=== PATIENT | female | born 1940 | race Caucasian/White ===

== ENCOUNTER 2016-12-11 20:27 | Inpatient (IN) | payer OTHER ==
[~2016-12-11] VITALS: Ht 167.6 cm; Wt 105.4 kg
[2016-12-11 21:01] VITALS: BP 197/111
[2016-12-11 21:30] VITALS: BP 190/118
[2016-12-11 22:23] LABS: CHLORIDE 109 mEq/L (99-109); MCH 25.4 PG (29.0-34.0); MCHC 30.9 G/DL (30.0-36.0); MCV 82.3 FL (83-99); POTASSIUM 4.1 mEq/L (3.7-5.4); RBC DIS.WIDTH-CV 16.4 % (11.8-14.6); RED BLOOD COUNT 4.01 M/uL (3.80-5.20); SODIUM 140 mEq/L (136-147); WHITE BLOOD COUNT 8.1 K/uL (4.1-10.2)
[2016-12-11 22:25] LABS: GLUCOSE 156 mg/dL (70-99)
[2016-12-11 22:26] LABS: ANION GAP 9 MEQ/L (2-14); MEAN PLAT.VOLUME 9.7 uM^3 (9.5-12.4); PLATELET COUNT 446 K/uL (156-360)
[2016-12-11 22:27] LABS: TOTAL BILIRUBIN 0.2 mg/dL (0.0-1.0)
[2016-12-11 22:28] LABS: ALKALINE PHOSPHATASE 84 IU/L (3-129)
[2016-12-11 22:29] LABS: GFR ESTIMATE (CALCULATED) 33 mL/min/
[2016-12-11 22:30] LABS: UREA NITROGEN (BUN) 25 mg/dL (9-23)
[2016-12-11 22:32] LABS: LIPASE 71 U/L (1.0-51.0)
[2016-12-11 23:27] LABS: ADD MIUA? YES; BILIRUBIN NEGATIVE; BLOOD NEGATIVE; COLOR YELLOW ((YELLOW)); GLUCOSE (STRIP) NEGATIVE; KETONES NEGATIVE; LEUKOCYTES NEGATIVE; NITRITE NEGATIVE; PROTEIN (STRIP) >=500; SPECIFIC GRAVITY 1.013 (1.000-1.030); UROBILINOGEN 0.2 MG/DL (0.2-1.0)
[2016-12-11 23:48] LABS: BACTERIA 2+ /HPF; EPITHELIAL CELLS RARE /HPF; MUCUS NONE SEEN /LPF; RED BLOOD CELLS 0-5 /HPF (0-5); WHITE BLOOD CELLS 0-5 /HPF (0-5)
[2016-12-11 23:52] LABS: UCUL ADDED? YES
[2016-12-12 02:04] LABS: INFLUENZA A VIRAL ANTIGEN NEGATIVE; INFLUENZA B VIRAL ANTIGEN NEGATIVE
[2016-12-12] MEDS ORDERED: GABAPENTIN300 MG PO (03:22)
[2016-12-12] MEDS ORDERED: ASPIRIN325 MG PO (03:22)
[2016-12-12] MEDS ORDERED: LEVO-T125 MCG PO (03:23)
[2016-12-12] MEDS ORDERED: PRAVASTATIN SOD80 MG PO (03:23)
[2016-12-12] MEDS ORDERED: METOPROLOL TART50 MG PO (03:24)
[2016-12-12] MEDS ORDERED: B-121000 MC2 PO (03:24)
[2016-12-12] MEDS ORDERED: MULTIVITAMIN1 EAC2 PO (03:25)
[2016-12-12] MEDS ORDERED: LISINOPRIL20 MG PO (03:25)
[2016-12-12] MEDS ORDERED: PANTOPRAZOLE SO20 MG PO (03:26)
[2016-12-12] MEDS ORDERED: HUMALOG MI100 UNIT/1 SC (03:26)
[2016-12-12] MEDS ORDERED: MAGNESIUM30 MG PO (03:27)
[2016-12-12 06:47] VITALS: BP 136/97
[2016-12-12 07:58] VITALS: BP 181/93
[2016-12-12 08:04] LABS: POINT-OF-CARE METER ID UU13113700
[2016-12-12] MEDS ORDERED: PROTONIX40 MG PO (08:28)
[2016-12-12] MEDS ORDERED: VITAMIN B122500 MCG PO (08:29)
[2016-12-12 11:02] VITALS: BP 126/81
[2016-12-12 15:42] LABS: HEMATOCRIT 31.6 % (36.0-46.0); MCH 25.2 PG (29.0-34.0); MCHC 30.7 G/DL (30.0-36.0); MCV 82.1 FL (83-99); MEAN PLAT.VOLUME 9.3 uM^3 (9.5-12.4); PLATELET COUNT 410 K/uL (156-360); RBC DIS.WIDTH-CV 16.8 % (11.8-14.6); RBC DIS.WIDTH-SD 49.9 % (39-53); RED BLOOD COUNT 3.85 M/uL (3.80-5.20); WHITE BLOOD COUNT 8.1 K/uL (4.1-10.2)
[2016-12-12 15:59] VITALS: BP 139/75
[2016-12-12 16:06] LABS: ANION GAP 8 MEQ/L (2-14); CHLORIDE 106 MEQ/L (99-109); GFR ESTIMATE (CALCULATED) 36 mL/min/; POTASSIUM 4.2 MEQ/L (3.7-5.4); SAMPLE HEMOLYSIS CHECK 0; SAMPLE ICTERIC CHECK 0; SAMPLE LIPEMIA CHECK 0; SODIUM 136 MEQ/L (136-147); UREA NITROGEN (BUN) 25 mg/dL (9-23)
[2016-12-12 16:07] LABS: GLUCOSE 329 mg/dL (70-99)
[2016-12-12 20:00] VITALS: BP 130/78
[2016-12-13] VITALS: BP 154/89
[2016-12-13 04:00] VITALS: BP 128/66
[2016-12-13 07:46] VITALS: BP 126/82
[2016-12-13 07:48] LABS: POINT-OF-CARE METER ID UU14174225
[2016-12-13 11:32] VITALS: BP 147/72
[2016-12-13 15:05] VITALS: BP 153/79
[2016-12-13 17:14] LABS: POINT-OF-CARE METER ID UU14188625
[2016-12-13 19:29] VITALS: BP 174/81
[2016-12-13 21:28] LABS: POINT-OF-CARE METER ID UU14188625
[2016-12-14 00:48] VITALS: BP 156/83
[2016-12-14 04:24] VITALS: BP 138/84
[2016-12-14 06:27] LABS: HEMATOCRIT 29.8 % (36.0-46.0); MCH 24.8 PG (29.0-34.0); MCHC 30.5 G/DL (30.0-36.0); MCV 81.2 FL (83-99); MEAN PLAT.VOLUME 9.7 uM^3 (9.5-12.4); PLATELET COUNT 441 K/uL (156-360); RBC DIS.WIDTH-CV 16.7 % (11.8-14.6); RBC DIS.WIDTH-SD 49.6 % (39-53); RED BLOOD COUNT 3.67 M/uL (3.80-5.20); WHITE BLOOD COUNT 7.1 K/uL (4.1-10.2)
[2016-12-14 06:49] LABS: ANION GAP 9 MEQ/L (2-14); CHLORIDE 103 MEQ/L (99-109); GFR ESTIMATE (CALCULATED) 33 mL/min/; GLUCOSE 185 mg/dL (70-99); SAMPLE HEMOLYSIS CHECK 0; SAMPLE ICTERIC CHECK 0; SAMPLE LIPEMIA CHECK 0; SODIUM 134 MEQ/L (136-147); UREA NITROGEN (BUN) 26 mg/dL (9-23)
[2016-12-14 07:50] VITALS: BP 130/70
[2016-12-14 11:08] VITALS: BP 140/84
[2016-12-14 16:00] VITALS: BP 158/83
[2016-12-14 19:38] VITALS: BP 187/79
[2016-12-15] VITALS (8 sets, daily range): BP systolic 136–165; BP diastolic 70–94
[2016-12-15 06:46] LABS: HEMATOCRIT 32.1 % (36.0-46.0); MCH 24.7 PG (29.0-34.0); MCHC 30.5 G/DL (30.0-36.0); MCV 81.1 FL (83-99); MEAN PLAT.VOLUME 9.5 uM^3 (9.5-12.4); PLATELET COUNT 432 K/uL (156-360); RBC DIS.WIDTH-CV 16.5 % (11.8-14.6); RBC DIS.WIDTH-SD 48.9 % (39-53); RED BLOOD COUNT 3.96 M/uL (3.80-5.20); WHITE BLOOD COUNT 5.9 K/uL (4.1-10.2)
[2016-12-15 07:06] LABS: ANION GAP 9 MEQ/L (2-14); CHLORIDE 101 MEQ/L (99-109); GFR ESTIMATE (CALCULATED) 39 mL/min/; GLUCOSE 211 mg/dL (70-99); POTASSIUM 4.2 MEQ/L (3.7-5.4); SAMPLE HEMOLYSIS CHECK 0; SAMPLE ICTERIC CHECK 0; SAMPLE LIPEMIA CHECK 0; SODIUM 134 MEQ/L (136-147); UREA NITROGEN (BUN) 24 mg/dL (9-23)
[2016-12-15 21:03] LABS: POINT-OF-CARE METER ID UU14174225
[2016-12-16 03:46] VITALS: BP 148/60
[2016-12-16 07:30] VITALS: BP 138/76
[2016-12-16 07:58] LABS: POINT-OF-CARE METER ID UU14174225
[2016-12-16 11:09] VITALS: BP 138/64
[2016-12-16 15:15] VITALS: BP 134/69
[2016-12-16 19:58] VITALS: BP 170/100
[2016-12-16 21:53] LABS: POINT-OF-CARE METER ID UU14174225
[2016-12-17] VITALS (8 sets, daily range): BP systolic 108–150; BP diastolic 60–88
[2016-12-17 07:22] LABS: POINT-OF-CARE METER ID UU14174225
[2016-12-17 11:46] LABS: POINT-OF-CARE METER ID UU14174225
[2016-12-17 16:32] LABS: POINT-OF-CARE METER ID UU14174225
[2016-12-17 21:02] LABS: POINT-OF-CARE METER ID UU14174225
[2016-12-18 06:45] LABS: HEMATOCRIT 30.8 % (36.0-46.0); MCH 26.4 PG (29.0-34.0); MCHC 32.1 G/DL (30.0-36.0); MCV 82.1 FL (83-99); MEAN PLAT.VOLUME 9.7 uM^3 (9.5-12.4); PLATELET COUNT 452 K/uL (156-360); RBC DIS.WIDTH-CV 16.6 % (11.8-14.6); RBC DIS.WIDTH-SD 50.1 % (39-53); RED BLOOD COUNT 3.75 M/uL (3.80-5.20); WHITE BLOOD COUNT 7.3 K/uL (4.1-10.2)
[2016-12-18 08:08] VITALS: BP 163/72
[2016-12-18 08:33] LABS: ANION GAP 8 MEQ/L (2-14); CHLORIDE 98 MEQ/L (99-109); GFR ESTIMATE (CALCULATED) 39 mL/min/; GLUCOSE 156 mg/dL (70-99); POTASSIUM 4.8 MEQ/L (3.7-5.4); SAMPLE HEMOLYSIS CHECK 0; SAMPLE ICTERIC CHECK 0; SAMPLE LIPEMIA CHECK 0; SODIUM 133 MEQ/L (136-147); UREA NITROGEN (BUN) 27 mg/dL (9-23)
[2016-12-18 12:14] VITALS: BP 156/67
[2016-12-18 15:31] VITALS: BP 130/82
[2016-12-18 19:57] VITALS: BP 145/85
[2016-12-18 21:22] VITALS: BP 132/72
[2016-12-18 23:51] VITALS: BP 178/80
[2016-12-19 00:40] VITALS: BP 140/76
[2016-12-19 04:00] VITALS: BP 151/79
[2016-12-19 07:29] VITALS: BP 130/70
[2016-12-19 11:51] VITALS: BP 118/70
[2016-12-19 11:53] LABS: POINT-OF-CARE METER ID UU14174225
[2016-12-19] MEDS ORDERED: VIVA PATCH1 EACH TP (15:39)
[2016-12-19] MEDS ORDERED: VOLTAREN 1% GE100 GM TP (15:39)
[2016-12-19] MEDS ORDERED: METOPROLOL TART50 MG PO ×2 (15:39→15:44)
[2016-12-19] MEDS ORDERED: MUCINEX600 MG PO (15:40)
== END 2016-12-19 16:51 | DRG 690 ==
LOC: EME 20:27 → EDOF 12-12 02:44 → 5WEST 12-12 04:03 → 5SOUTH 12-12 11:28 → 5WEST 12-12 11:28 → 5SOUTH 12-12 11:28 → 5WEST 12-12 11:28 → 5SOUTH 12-12 15:41
PROVIDERS: Emergency Medicine; Hospitalist; Internal Medicine
DX: N39.0 Urinary tract infection, site not specified (principal); N17.9 Acute kidney failure, unspecified; I48.0 Paroxysmal atrial fibrillation; I44.1 Atrioventricular block, second degree; I16.0 Hypertensive urgency; M17.11 Unilateral primary osteoarthritis, right knee; E11.9 Type 2 diabetes mellitus without complications; M25.561 Pain in right knee; J40 Bronchitis, not specified as acute or chronic; B85.0 Pediculosis due to Pediculus humanus capitis; E66.9 Obesity, unspecified; Z68.37 Body mass index [BMI] 37.0-37.9, adult; Z85.528 Personal history of other malignant neoplasm of kidney; Z86.73 Personal history of transient ischemic attack (TIA), and cerebral infarction without residual deficits
CPT/HCPCS: 71010; 73502; 73564; 73700; 80048; 80053; 81003; 82948; 83690; 84443; 85027; 87077; 87086; 87186; 87502; 93005; 93971; 94640; 97530 GO; 97530 GP; 99281; 99285; J0360; J0696; J1644; J1815; J7050

== ENCOUNTER 2017-06-14 01:24 | Emergency (ER) | payer OTHER ==
[~2017-06-14] VITALS: Ht 167.6 cm; Wt 100.8 kg
[~2017-06-14 01:24] MED LIST: ASPIRIN325 MG PO; B-121000 MC2 PO; GABAPENTIN300 MG PO; HUMALOG MI100 UNIT/1 SC; LEVO-T125 MCG PO; LISINOPRIL20 MG PO; MAGNESIUM30 MG PO; METOPROLOL TART50 MG PO; MUCINEX600 MG PO; MULTIVITAMIN1 EAC2 PO; PANTOPRAZOLE SO20 MG PO; PRAVASTATIN SOD80 MG PO; PROTONIX40 MG PO; VITAMIN B122500 MCG PO; VIVA PATCH1 EACH TP; VOLTAREN 1% GE100 GM TP
[2017-06-14 02:11] LABS: HEMATOCRIT 34.7 % (36.0-46.0); MCH 25.6 PG (29.0-34.0); MCHC 31.4 G/DL (30.0-36.0); MCV 81.5 FL (83-99); MEAN PLAT.VOLUME 9.1 uM^3 (9.5-12.4); PLATELET COUNT 366 K/uL (156-360); RBC DIS.WIDTH-CV 17.3 % (11.8-14.6); RBC DIS.WIDTH-SD 51.3 % (39-53); RED BLOOD COUNT 4.26 M/uL (3.80-5.20); WHITE BLOOD COUNT 6.7 K/uL (4.1-10.2)
[2017-06-14 02:20] LABS: CHLORIDE 101 mEq/L (99-109); POTASSIUM 4.5 mEq/L (3.7-5.4); SODIUM 135 mEq/L (136-147)
[2017-06-14 02:22] LABS: GLUCOSE 201 mg/dL (70-99)
[2017-06-14 02:23] LABS: ANION GAP 11 MEQ/L (2-14)
[2017-06-14 02:24] LABS: TOTAL BILIRUBIN 0.4 mg/dL (0.0-1.0)
[2017-06-14 02:25] LABS: ALKALINE PHOSPHATASE 86 IU/L (3-129)
[2017-06-14 02:26] LABS: GFR ESTIMATE (CALCULATED) 31 mL/min/
[2017-06-14 02:27] LABS: UREA NITROGEN (BUN) 25 mg/dL (9-23)
[2017-06-14 02:29] LABS: LIPASE 67 U/L (1.0-51.0)
[2017-06-14 02:31] LABS: TROP-I INTERPRETATION NEGATIVE; TROPONIN-I 0.02 ng/mL (0.0-0.30)
[2017-06-14] MEDS ORDERED: METOPROLOL TART75 MG PO ×2 (05:01→05:11)
[2017-06-14] MEDS ORDERED: PRAVASTATIN SOD80 MG PO ×2 (05:01→05:11)
[2017-06-14] MEDS ORDERED: AUGMENTIN875 MG PO ×2 (05:01→05:11)
[2017-06-14] MEDS ORDERED: HUMALOG MI100 UNIT/1 SC (05:01)
[2017-06-14] MEDS ORDERED: GABAPENTIN300 MG PO ×2 (05:01→05:11)
[2017-06-14 05:16] VITALS: BP 166/93
== END 2017-06-14 05:17 | disposition home or self-care (01) ==
LOC: EME 01:24
PROVIDERS: Emergency Medicine
DX: I12.9 Hypertensive chronic kidney disease with stage 1 through stage 4 chronic kidney disease, or unspecified chronic kidney disease (principal); E11.22 Type 2 diabetes mellitus with diabetic chronic kidney disease; E11.65 Type 2 diabetes mellitus with hyperglycemia; Z79.4 Long term (current) use of insulin; N18.9 Chronic kidney disease, unspecified; H66.92 Otitis media, unspecified, left ear; D64.9 Anemia, unspecified; R51 Headache; M25.561 Pain in right knee; M25.562 Pain in left knee; R91.8 Other nonspecific abnormal finding of lung field; Z76.0 Encounter for issue of repeat prescription; Z85.528 Personal history of other malignant neoplasm of kidney; Z79.82 Long term (current) use of aspirin
CPT/HCPCS: 70450; 71020; 80053; 83690; 84484; 85027; 93005; 99281; 99285

== ENCOUNTER 2017-06-16 13:51 | Inpatient (IN) | payer OTHER ==
[~2017-06-16] VITALS: Ht 167.6 cm; Wt 107.1 kg
[~2017-06-16 13:51] MED LIST changes: +AUGMENTIN875 MG PO; +METOPROLOL TART75 MG PO
[2017-06-16 14:53] LABS: ADD MIUA? YES; BILIRUBIN NEGATIVE; BLOOD NEGATIVE; COLOR YELLOW ((YELLOW)); GLUCOSE (STRIP) 150; KETONES NEGATIVE; LEUKOCYTES NEGATIVE; NITRITE NEGATIVE; PROTEIN (STRIP) >=500; SPECIFIC GRAVITY 1.018 (1.000-1.030); UROBILINOGEN 0.2 MG/DL (0.2-1.0)
[2017-06-16 15:24] LABS: CRYSTALS PRESENT
[2017-06-16 15:25] LABS: BACTERIA NONE SEEN /HPF; CASTS PRESENT /LPF; EPITHELIAL CELLS RARE /HPF; HYALINE CASTS 0-5 /LPF; MUCUS NONE SEEN /LPF; RED BLOOD CELLS 0-5 /HPF (0-5); UCUL ADDED? NO; WHITE BLOOD CELLS 0-5 /HPF (0-5)
[2017-06-16 16:42] LABS: EOSINOPHIL (%) 0.3 % (0-5); IMMATURE GRANULOCYTE (%) 0.2 % (0.0-0.7); INSTRUMENT ABS NEUTROPHIL CT 6.3 K/uL; LYMPHOCYTE COUNT 1.9 K/uL (1.0-2.8); MCH 25.5 PG (29.0-34.0); MCHC 31.4 G/DL (30.0-36.0); MEAN PLAT.VOLUME 9.5 uM^3 (9.5-12.4); MONOCYTE (%) 11.1 % (3-12); NEUTROPHIL (%) 67.8 % (45-76); NEUTROPHIL COUNT 6.3 K/uL (1.8-6.4); PLATELET COUNT 325 K/uL (156-360); RBC DIS.WIDTH-CV 17.7 % (11.8-14.6); RBC DIS.WIDTH-SD 52.3 % (39-53); RED BLOOD COUNT 4.32 M/uL (3.80-5.20); WHITE BLOOD COUNT 9.2 K/uL (4.1-10.2)
[2017-06-16 17:14] LABS: CHLORIDE 103 mEq/L (99-109); SODIUM 133 mEq/L (136-147)
[2017-06-16 17:16] LABS: GLUCOSE 220 mg/dL (70-99)
[2017-06-16 17:17] LABS: ANION GAP 9 MEQ/L (2-14)
[2017-06-16 17:19] LABS: TOTAL BILIRUBIN 0.6 mg/dL (0.0-1.0)
[2017-06-16 17:20] LABS: ALKALINE PHOSPHATASE 88 IU/L (3-129); GFR ESTIMATE (CALCULATED) 27 mL/min/
[2017-06-16 17:21] LABS: UREA NITROGEN (BUN) 27 mg/dL (9-23)
[2017-06-16 17:25] LABS: TROP-I INTERPRETATION NEGATIVE; TROPONIN-I 0.09 ng/mL (0.0-0.30)
[2017-06-16 18:51] LABS: TROP-I INTERPRETATION NEGATIVE; TROPONIN-I 0.14 ng/mL (0.0-0.30)
[2017-06-16] MEDS ORDERED: LOPRESSOR25 MG PO (20:18)
[2017-06-16] MEDS ORDERED: LOPRESSOR50 MG PO (20:19)
[2017-06-16 21:24] LABS: POINT-OF-CARE METER ID UU14100415
[2017-06-16] MEDS ORDERED: NOVOLOG MI100 UNIT/2 SC (21:24)
[2017-06-16 21:37] LABS: BICARBONATE 25.5 mEq/L (22-26); CARBOXY HGB 1.4 % (0-5); COMMENTS - BLOOD GASES A+C+; DEVICE NC; METHEMOGLOBIN 2.5 % (0-1.5); O2 FLOW 1 L/MIN; PCO2 35 mm Hg (35-45); PO2 102 mm Hg (80-100); SITE LR; pH 7.47 (7.35-7.45)
[2017-06-16 22:06] LABS: EOSINOPHIL (%) 0.7 % (0-5); EOSINOPHIL COUNT 0.1 K/uL (0-0.3); HEMATOCRIT 33.8 % (36.0-46.0); IMMATURE GRANULOCYTE (%) 0.3 % (0.0-0.7); LYMPHOCYTE COUNT 2.8 K/uL (1.0-2.8); MCH 25.7 PG (29.0-34.0); MCHC 31.4 G/DL (30.0-36.0); MONOCYTE (%) 9.4 % (3-12); MONOCYTE COUNT 0.8 K/uL (0-0.8); NEUTROPHIL (%) 57.7 % (45-76); RED BLOOD COUNT 4.12 M/uL (3.80-5.20); WHITE BLOOD COUNT 8.7 K/uL (4.1-10.2)
[2017-06-16 22:07] LABS: MEAN PLAT.VOLUME 10.1 uM^3 (9.5-12.4); PLATELET COUNT 329 K/uL (156-360)
[2017-06-16 22:15] LABS: CHLORIDE 105 mEq/L (99-109); SODIUM 136 mEq/L (136-147)
[2017-06-16 22:18] LABS: GLUCOSE 190 mg/dL (70-99)
[2017-06-16 22:19] LABS: ANION GAP 9 MEQ/L (2-14); TOTAL BILIRUBIN 0.6 mg/dL (0.0-1.0)
[2017-06-16 22:21] LABS: ALKALINE PHOSPHATASE 87 IU/L (3-129); GFR ESTIMATE (CALCULATED) 26 mL/min/
[2017-06-16 22:22] LABS: UREA NITROGEN (BUN) 29 mg/dL (9-23)
[2017-06-16 22:24] LABS: CREATINE KINASE 27 IU/L (1-294)
[2017-06-16 22:28] LABS: TROP-I INTERPRETATION NEGATIVE; TROPONIN-I 0.16 ng/mL (0.0-0.30)
[2017-06-16 23:15] VITALS: BP 170/74
[2017-06-17 03:14] VITALS: BP 126/62
[2017-06-17 04:00] VITALS: BP 126/60
[2017-06-17 04:51] LABS: TROP-I INTERPRETATION NEGATIVE; TROPONIN-I 0.12 ng/mL (0.0-0.30)
[2017-06-17 05:17] LABS: HDL CHOLESTEROL 31 MG/DL (Desirable>=50); LDL CHOLESTEROL 111 mg/dL (Desirable<100); NON-HDL CHOLESTEROL 168 mg/dL (Desirable<160); TOTAL CHOLESTEROL 199 mg/dL (Desirable<200); TRIGLYCERIDES 284 MG/DL (Normal: <150)
[2017-06-17 07:20] VITALS: BP 120/65
[2017-06-17 08:07] LABS: POINT-OF-CARE METER ID UU14174225
[2017-06-17 08:41] LABS: ANION GAP 10 MEQ/L (2-14); CHLORIDE 105 MEQ/L (99-109); GFR ESTIMATE (CALCULATED) 27 mL/min/; GLUCOSE 230 mg/dL (70-99); POTASSIUM 4.1 MEQ/L (3.7-5.4); SODIUM 138 MEQ/L (136-147); UREA NITROGEN (BUN) 32 mg/dL (9-23)
[2017-06-17 11:03] LABS: HEMATOCRIT 31.6 % (36.0-46.0); MCH 26.3 PG (29.0-34.0); MCHC 31.3 G/DL (30.0-36.0); MCV 83.8 FL (83-99); PLATELET COUNT 301 K/uL (156-360); RBC DIS.WIDTH-CV 18.1 % (11.8-14.6); RBC DIS.WIDTH-SD 54.8 % (39-53); RED BLOOD COUNT 3.77 M/uL (3.80-5.20)
[2017-06-17 11:33] LABS: POINT-OF-CARE METER ID UU13113717
[2017-06-17 11:45] VITALS: BP 120/57
[2017-06-17 15:54] LABS: POINT-OF-CARE METER ID UU13113717
[2017-06-17 19:31] VITALS: BP 135/71
[2017-06-17 21:15] LABS: POINT-OF-CARE METER ID UU13113717; POINT-OF-CARE USER ID 610211320
[2017-06-17 23:45] VITALS: BP 145/76
[2017-06-18 03:29] VITALS: BP 133/71
[2017-06-18 06:19] LABS: MCHC 29.7 G/DL (30.0-36.0); MCV 84.3 FL (83-99); MEAN PLAT.VOLUME 10.1 uM^3 (9.5-12.4); PLATELET COUNT 335 K/uL (156-360); RBC DIS.WIDTH-CV 18.2 % (11.8-14.6); RED BLOOD COUNT 3.56 M/uL (3.80-5.20); WHITE BLOOD COUNT 5.9 K/uL (4.1-10.2)
[2017-06-18 06:55] LABS: ANION GAP 7 MEQ/L (2-14); CHLORIDE 104 MEQ/L (99-109); GFR ESTIMATE (CALCULATED) 24 mL/min/; GLUCOSE 144 mg/dL (70-99); SAMPLE HEMOLYSIS CHECK 0; SAMPLE ICTERIC CHECK 0; SAMPLE LIPEMIA CHECK 0; SODIUM 136 MEQ/L (136-147); UREA NITROGEN (BUN) 33 mg/dL (9-23)
[2017-06-18 07:53] VITALS: BP 193/77
[2017-06-18 12:07] VITALS: BP 193/85
[2017-06-18 12:31] LABS: POINT-OF-CARE METER ID UU14174225
[2017-06-18 14:25] VITALS: BP 144/72
[2017-06-18 20:00] VITALS: BP 166/90
[2017-06-18 21:51] LABS: POINT-OF-CARE METER ID UU14174225
[2017-06-18 23:50] VITALS: BP 153/73
[2017-06-19 03:42] VITALS: BP 134/71
[2017-06-19 06:19] LABS: MCH 25.4 PG (29.0-34.0); MCHC 30.3 G/DL (30.0-36.0); MCV 83.6 FL (83-99); MEAN PLAT.VOLUME 9.6 uM^3 (9.5-12.4); PLATELET COUNT 331 K/uL (156-360); RBC DIS.WIDTH-CV 17.6 % (11.8-14.6); RBC DIS.WIDTH-SD 54.8 % (39-53); RED BLOOD COUNT 3.47 M/uL (3.80-5.20); WHITE BLOOD COUNT 6.5 K/uL (4.1-10.2)
[2017-06-19 06:42] LABS: ANION GAP 6 MEQ/L (2-14); CHLORIDE 104 MEQ/L (99-109); GFR ESTIMATE (CALCULATED) 31 mL/min/; GLUCOSE 124 mg/dL (70-99); POTASSIUM 4.8 MEQ/L (3.7-5.4); SAMPLE HEMOLYSIS CHECK 0; SAMPLE ICTERIC CHECK 0; SAMPLE LIPEMIA CHECK 0; SODIUM 136 MEQ/L (136-147); UREA NITROGEN (BUN) 27 mg/dL (9-23)
[2017-06-19 07:59] LABS: Estimated Average Glucose 217 mg/dL (70-123); HEMOGLOBIN A1c (GLYCOHEMOGLOB) 9.2 % HGB (Below 5.7)
[2017-06-19 08:46] VITALS: BP 178/85
[2017-06-19 13:42] VITALS: BP 160/76
[2017-06-19] MEDS ORDERED: SYNTHROID150 MCG PO (14:02)
[2017-06-19] MEDS ORDERED: CLOTRIMAZOLE15 GM TP (14:03)
[2017-06-19] MEDS ORDERED: GABAPENTIN100 MG PO (14:03)
[2017-06-19] MEDS ORDERED: AUGMENTIN875 MG PO (14:04)
[2017-06-19] MEDS ORDERED: TRAMADOL HCL50 MG PO ×2 (14:08→14:18)
[2017-06-19] MEDS ORDERED: TYLENOL REGULA325 MG PO (14:08)
[2017-06-19 16:28] VITALS: BP 186/92
== END 2017-06-19 20:43 | DRG 71 ==
LOC: EME 13:51 → EDOF 19:51 → ENRESERV 19:56 → EDOF 21:18 → 5SOUTH 21:18 → ENRESERV 21:22 → 5SOUTH 23:10
PROVIDERS: Emergency Medicine; Hospitalist; Internal Medicine; Physician Assistant Medical
DX: G93.41 Metabolic encephalopathy (principal); N17.9 Acute kidney failure, unspecified; E87.1 Hypo-osmolality and hyponatremia; F40.240 Claustrophobia; H66.92 Otitis media, unspecified, left ear; M19.011 Primary osteoarthritis, right shoulder; E87.3 Alkalosis; E11.65 Type 2 diabetes mellitus with hyperglycemia; M17.11 Unilateral primary osteoarthritis, right knee; M17.12 Unilateral primary osteoarthritis, left knee; H70.90 Unspecified mastoiditis, unspecified ear; N18.4 Chronic kidney disease, stage 4 (severe); E11.22 Type 2 diabetes mellitus with diabetic chronic kidney disease; I48.0 Paroxysmal atrial fibrillation; E03.9 Hypothyroidism, unspecified; D64.9 Anemia, unspecified; E66.9 Obesity, unspecified; E78.5 Hyperlipidemia, unspecified; I20.9 Angina pectoris, unspecified; I13.10 Hypertensive heart and chronic kidney disease without heart failure, with stage 1 through stage 4 chronic kidney disease, or unspecified chronic kidney disease; Z53.20 Procedure and treatment not carried out because of patient's decision for unspecified reasons; Z68.36 Body mass index [BMI] 36.0-36.9, adult; Z79.4 Long term (current) use of insulin; Z86.73 Personal history of transient ischemic attack (TIA), and cerebral infarction without residual deficits; Z90.49 Acquired absence of other specified parts of digestive tract; Z85.528 Personal history of other malignant neoplasm of kidney; Z90.5 Acquired absence of kidney; Z82.49 Family history of ischemic heart disease and other diseases of the circulatory system
CPT/HCPCS: 36600; 70450; 71020; 73030; 73564; 80048; 80053; 80061; 81003; 82272; 82550 91; 82803; 82948; 83036; 83605; 83690; 83880; 84439; 84443; 84484; 85025; 85025 91; 85027; 87040; 87493; 92610 GN; 93005; 93880; 94799; 97530 GO; 97530 GP; 99281; 99285; J1644; J1815; J1885; J2543; J7030; J7050